=== PATIENT | female | born 1955 | race Caucasian/White ===

== ENCOUNTER → 2019-05-25 | Outpatient (CLI) | payer BC ==
[~2019-05-25] MED LIST: CONTRAST GIVEN MC PRN; IOHEXOL 300 MG/ML 75 ML VIAL. IV ONE
--- NOTE | 2019-05-25 17:46 | RAD ---
PQRS Compliance Statement: One or more of the following individualized dose reduction techniques were utilized for this examination: 1. Automated exposure control 2. Adjustment of the mA and/or kV according to patient size 3. Use of iterative reconstruction technique CT ABDOMEN PELVIS WO/W, CT UROGRAM Clinical Indication: Microscopic hematuria, cystitis. Comparison: None. TECHNIQUE: Helical CT imaging of the abdomen and pelvis is performed before and after 75 cc of Omnipaque [address] urogram protocol. Postcontrast imaging occurred of the abdomen during early nephrographic phase and of the abdomen and pelvis at 10 and 15 minute delays. Findings: There is a punctate calculus in the upper pole of the right kidney. There is at least one punctate calculus of the left kidney. There is no ureteral or bladder calculus. No perinephric stranding is seen. Kidneys enhance symmetrically. There is a tiny left renal cyst. No follow-up imaging is recommended per consensus recommendations based on imaging criteria. No filling defect in the renal pelves is seen on the delay image. The ureters are normal. The distal right ureter is not contrast opacified. The urinary bladder is normal. Minimal atelectasis posterior right lower lobe. Lungs otherwise clear. Cardiac size normal. There are multiple hepatic cysts. There are a few hepatic hypodensities that are too small to further characterize. The gallbladder, spleen, pancreas, biliary tree, pancreatic duct, adrenal glands, and abdominal aorta caliber are normal. No obvious abnormality of the stomach. There is no dilated small bowel. The appendix is normal. There is moderate to large colon stool volume. No colon wall thickening is identified. There is no abdominal adenopathy or free fluid. Hysterectomy. No pelvic free fluid. There is bilateral L5 spondylolysis. No spondylolisthesis is seen. IMPRESSION: 1. No CT explanation for patient's hematuria. The urinary bladder is normal. 2. There are punctate nonobstructing calculi in the kidneys. 3. Multiple hepatic cysts. 4. Moderate to large colon stool volume suggests constipation. Electronically signed by: Moody Avalos MD (05/25/2019 5:43 PM) [id number]
== END | disposition home or self-care (01) ==
LOC: CT 08:02
PROVIDERS: ATTEND Urology
DX: N20.0 Calculus of kidney (principal); N28.1 Cyst of kidney, acquired; J98.11 Atelectasis; K76.89 Other specified diseases of liver
CPT/HCPCS: 74178; Q9967